=== PATIENT | male | born 1960 | race Caucasian/White ===

== ENCOUNTER 2017-09-13 08:30 | Inpatient (IN) ==
[2017-09-06 18:39] LABS: Appearance,Urine HAZY; Bacteria,Urine MOD /hpf (0); Bilirubin,Urine NEG (NEG); Color,Urine AMBER; Glucose,Urine (UA) NEGATIVE (NEG); Leukocyte Esterase,Urine 250 /uL (NEG); Mucus,Urine MOD /hpf (0); Nitrate,Urine POS (NEG); Protein,Urine NEG (NEG); Urine Blood NEG mg/dL (<0.03); Urine RBC 3 /hpf (0-1); Urine Squamous Epithelial Cell < 1 /hpf (0-4); Urine WBC 81 /hpf (0-4); Urobilinogen,Urine NEG (NEG)
[2017-09-06 19:52] LABS: Basophils # (Auto) 0 K/mcL (0.0-0.3); Basophils % (Auto) 0.3 % (0.0-2.0); Eosinophils # (Auto) 0.1 K/mcL (0.0-0.7); Eosinophils % (Auto) 1.6 % (0.0-7.0); Granulocytes % (Auto) 62.7 % (38.0-78.0); Lymphocytes # (Auto) 2.6 K/mcL (1.5-4.8); Lymphocytes % (Auto) 28.3 % (15.5-49.0); Mean Cell Volume 89.5 fL (80.0-100.0); Mean Corpuscular HGB Conc 33.5 g/dL (31.0-36.0); Monocytes # (Auto) 0.6 K/mcL (0.1-0.9); Monocytes % (Auto) 7.1 % (1.0-12.0); Platelet Count 261 K/mcL (140-440); Red Cell Distribution Width 13.4 % (11.5-14.5)
[2017-09-06 20:10] LABS: Blood Urea Nitrogen 13 mg/dl (6-20)
[~2017-09-13 08:30] MED LIST: CELECOXIB 200 MG CAPSULE PO SCH; PREGABALIN 75 MG CAPSULE PO SCH; ceFAZolin 1 GM VIAL IV SCH
[2017-09-13] MEDS ORDERED: oxyCODONE/APAP 10/325MG TABLET PO ONE (14:02)
[2017-09-13 16:17] LABS: Appearance,Urine CLEAR; Bilirubin,Urine NEG (NEG); Color,Urine YELLOW; Glucose,Urine (UA) NEGATIVE (NEG); Leukocyte Esterase,Urine NEG /uL (NEG); Nitrate,Urine NEG (NEG); Protein,Urine NEG (NEG); Specific Gravity,Urine 1.018 (1.000-1.035); Urine Blood NEG mg/dL (<0.03); Urobilinogen,Urine NEG (NEG)
[2017-09-13] MEDS ORDERED: DEXAMETHASONE 10 MG/ML VIAL IV ONE (18:45)
[2017-09-13] MEDS ORDERED: MIDAZOLAM 5 MG/5 ML VIAL IV ONE (18:45)
[2017-09-13] MEDS ORDERED: SUCCINYLCHOLINE 20 MG/ML ML IV ONE (18:45)
[2017-09-13] MEDS ORDERED: fentaNYL 100 MCG/2 ML VIAL IV ONE (18:45)
[2017-09-13] MEDS ORDERED: LIDOCAINE HCL/PF 100 MG/5 ML SYRINGE IV ONE (18:45)
[2017-09-13] MEDS ORDERED: ePHEDrine 50 MG/ML AMPUL IV ONE (18:45)
[2017-09-13] MEDS ORDERED: PHENYLEPHRINE 10 MG/ML VIAL IV ONE (18:45)
[2017-09-13] MEDS ORDERED: PROPOFOL 200 MG/20 ML VIAL IV ONE (18:45)
[2017-09-13] MEDS ORDERED: TRANEXAMIC ACID 1,000 MG/10 ML VIAL IV ONE ×2 (18:45→20:44)
[2017-09-13] MEDS ORDERED: ONDANSETRON 4 MG/2 ML VIAL IV ONE (18:45)
[2017-09-13] MEDS ORDERED: GENTAMICIN SULFATE 800 MG/20 ML VIAL IR ONE (20:01)
[2017-09-13] MEDS ORDERED: METOPROLOL TARTRATE 5 MG/5 ML VIAL IV PRN (20:28)
[2017-09-13] MEDS ORDERED: MEPERIDINE 25 MG/ML SYRINGE IV PRN (20:28)
[2017-09-13] MEDS ORDERED: METHOCARBAMOL 1,000 MG/10 ML VIAL IV PRN (20:28)
[2017-09-13] MEDS ORDERED: diphenhydrAMINE 50 MG/ML VIAL IV PRN (20:28)
[2017-09-13] MEDS ORDERED: ONDANSETRON 4 MG/2 ML VIAL IV PRN ×2 (20:28→20:44)
[2017-09-13] MEDS ORDERED: ePHEDrine 50 MG/ML AMPUL IV PRN (20:28)
[2017-09-13] MEDS ORDERED: FLUMAZENIL 0.1 MG/ML ML IV PRN (20:28)
[2017-09-13] MEDS ORDERED: NALOXONE HCL 0.4 MG/ML VIAL IV PRN (20:28)
[2017-09-13] MEDS ORDERED: PROMETHAZINE 25 MG/ML VIAL IV PRN ×2 (20:28→20:44)
[2017-09-13] MEDS ORDERED: IPRATROPIUM/ALBUTEROL 3 ML AMPUL.NEB NEB PRN (20:28)
[2017-09-13] MEDS ORDERED: ATROPINE SULFATE 0.4 MG/ML VIAL IV PRN (20:28)
[2017-09-13] MEDS ORDERED: ACETAMINOPHEN 1,000 MG/100 ML BOTTLE IV ONE (20:28)
[2017-09-13] MEDS ORDERED: BENZOCAINE/MENTHOL 1 LOZENGE PO PRN ×2 (20:28→20:44)
[2017-09-13] MEDS ORDERED: fentaNYL 100 MCG/2 ML VIAL IV PRN (20:28)
[2017-09-13] MEDS ORDERED: LACTATED RINGERS 1,000 ML IV SCH (20:30)
[2017-09-13] MEDS ORDERED: FLEETS ADULT ENEMA PR PRN (20:44)
[2017-09-13] MEDS ORDERED: KETOROLAC 30 MG/ML VIAL IV PRN (20:44)
[2017-09-13] MEDS ORDERED: POLYETHYLENE GLYCOL 3350 17 GM PACKET PO PRN (20:44)
[2017-09-13] MEDS ORDERED: HYDROmorphone 2 MG/ML SYRINGE IV PRN (20:44)
[2017-09-13] MEDS ORDERED: ONDANSETRON ODT 4 MG TABLET SL PRN (20:44)
[2017-09-13] MEDS ORDERED: MAGNESIUM HYDROXIDE 30 ML ORAL.SUSP PO PRN (20:44)
[2017-09-13] MEDS ORDERED: BISACODYL 10 MG SUPP.RECT PR PRN (20:44)
--- NOTE | 2017-09-13 20:44 | Brief Operative Note ---
Date of procedure: 09/13/17 Pre-op diagnosis: left hip oa Post-op diagnosis: same Procedure: left total hip arthroplasty Grafts/Implants: Yes Anesthesia: spinal Complications: none Surgeon: Fernando Acuña Medical Program Specialist: Soniya Mon Estimated blood loss (cc): 250 Specimens Removed/Pathology: none sent Condition: stable Disposition: PACU
[2017-09-13] MEDS ORDERED: SENNOSIDES 1 TABLET PO SCH (21:00)
[2017-09-13] MEDS: 0.9 % SODIUM CHLORIDE 1,000 ML IV SCH (22:41)
[2017-09-13] MEDS: DOCUSATE SODIUM 100 MG CAPSULE PO SCH (23:10)
[2017-09-13] MEDS: ceFAZolin 1 GM VIAL IV SCH (23:10)
[2017-09-13] MEDS: ASPIRIN 325 MG ENTERIC COATED TABLET PO SCH (23:11)
[2017-09-13] MEDS: oxyCODONE/APAP 10/325MG TABLET PO PRN (23:13)
[2017-09-13] MEDS: 0.9 % SODIUM CHLORIDE 10 ML SYRINGE IV SCH (23:14)
[2017-09-14] MEDS: METHOCARBAMOL 750 MG TABLET PO PRN ×2 (02:19→09:24)
[2017-09-14] MEDS: ceFAZolin 1 GM VIAL IV SCH (06:24)
[2017-09-14] MEDS: oxyCODONE/APAP 10/325MG TABLET PO PRN ×2 (06:24→10:36)
--- NOTE | 2017-09-14 06:30 | XRay Report ---
CLINICAL INFORMATION: Post-Op Total Hip COMPARISON: MRI of 05/20/2017 FINDINGS: Left total hip prostheses is in near-anatomic alignment. No osseous abnormality. Soft tissue swelling seen as expected IMPRESSION: Negative Interpreted and Authenticated by: Fernando Becker 09/14/17
--- NOTE | 2017-09-14 07:19 | Discharge Summary ---
Providers - Providers Patient information: Note initiated : 09/14/17 at 7:16 am Service Date, if different from initiated Date: [] Patient: Laureano Cavanaugh 56 y/o M admitted on 09/13/17 for Arthroplasty Hip, Total - LEft. Chief Complaint: [POD #1 s/p left TOSHIA Patient is doing well. Ambulating and urinating okay. Denies significant pain this morning. Denies numbness, tingling, calf pain, SOB or CP. Has no questions or concerns this morning.] Discharge date: 09/14/17 Hospitalization Hospital course: Patient was brought to the operating room 09/13/17 for a left TOSHIA. Operation was successful without event. Patient tolerated procedure well. He was admitted overnight for observation and pain control. He will be discharged home today without complication. He will follow up in office in 2 weeks. Discharge diagnosis: hip osteoarthritis Exam - Exam Incision healing: Yes Incision draining: No Incision red: No Incision swollen: No Incision inflamed: No Clean and dry: Yes Weight bearing status: as tolerated (with assistive device) Range of motion: full AROM b/l knees, ankles, feet, Rt hip. Lt hip appropriate PO ROM. Ortho Discharge - TOSHIA - Patient Instructions Diet: Regular Diet Activity: activity as tolerated, ambulate with assistive device, weight bearing as tolerated Total Hip Protocol: Follow activity instructions as provided by Physical Therapy. Dressing Care: May shower in 2 days, Aquacel Ag - leave on for 5 days - Follow Up Plan Follow Up Appointments: Fernando Acuña MD [Physician] - Disposition: Home, Self-Care Prognosis: Fair Rehab Potential: Fair Overall status at discharge: patient is progressing back to baseline - Orders For Discharge Prescriptions: Aspirin [Ecotrin] 325 mg PO BID #60 tab.ec oxyCODONE/APAP [Percocet 10-325Mg] 1 - 2 tab PO Q4-6HP PRN #60 tab PRN Reason: Pain Level 3-6 Additional Discharge Orders: Physical Therapy at Discharge - TOSHIA Location: Determined By Patient Walker Location: Determined By Patient Pending Studies Resuscitation Status Full Code Diet Regular Diet Start TueSep 13 2046 Aspirin (Ecotrin) 325 mg PO BID [facility] Last Admin: 09/13/17 23:11 Dose: 325 mg Docusate Sodium (Colace) 100 mg PO BID [facility] Last Admin: 09/13/17 23:10 Dose: 100 mg Sodium Chloride (Sodium Chloride 0.9%) 1,000 mls @ 125 mls/hr IV .Q8H MELLISA Last Admin: 09/13/17 22:41 Dose: 125 mls/hr Methocarbamol (Robaxin) 750 mg PO Q6HP PRN PRN Reason: Muscle Spasm Last Admin: 09/14/17 02:19 Dose: 750 mg Oxycodone/Acetaminophen (Percocet 10-325mg) 1 tab PO Q4-6HP PRN PRN Reason: PAIN LEVEL 3-6 Last Admin: 09/14/17 06:24 Dose: 1 tab Admin: 09/13/17 23:13 Dose: 1 tab Senna (Senokot) 2 tab PO HS [facility] Last Admin: 09/13/17 23:10 Dose: 2 tab Sodium Chloride (Saline Flush) 10 ml IV Q8 [facility] Last Admin: 09/13/17 23:14 Dose: Not Given Shift Summary 09/14/17 04:08 Shift Summary by Katie Mays Patient is alert and oriented X 4. He was back on the floor at 2215. He has been unable to urinate adequately most of the shift. He was bladder scanned for 469. 2 hours later He voided 150 and was bladder scanned for 680. He was straight cathed for 600. He was given pain medication X1 and a muscle relaxer. He was able to sit at the edge of his bed. He did attempt to stand with 2 person assit. IV left hand is patent. Initialized on 09/14/17 04:08 - END OF NOTE Exam Vital signs: Temp Pulse Resp BP Pulse Ox 97.8 F 76 12 99/63 93 09/14/17 04:00 09/14/17 07:12 09/14/17 07:12 09/14/17 04:00 09/14/17 07:12 Constitutional: well developed, well nourished, no acute distress Respiratory: no intercostal retractions or use of accessory muscles Cardiovascular: other (DP/PT pulses 2+ b/l. Cap refill < 3 sec) Skin: other (dressing CDI without drainage/erythema) Neurologic: sensation intact to touch, other (b/l LE NVI. Motor grossly intact) Psychiatric: oriented to person, place and time
--- NOTE | 2017-09-14 07:28 | Operative Note ---
DATE OF OPERATION: 09/13/2017 PREOPERATIVE DIAGNOSIS: Degenerative joint disease, left hip. POSTOPERATIVE DIGNOSIS: Degenerative joint disease, left hip. PROCEDURE: Left total hip arthroplasty. SURGEON: Marco Antonio Acuña M.D. WE[employer] P[employer]ER HEAD SURGEON: Soniya Mon PA-C ANESTHESIA: Spinal with LMA assist. ESTIMATED BLOOD LOSS: 250 mL COMPLICATIONS: None noted. SPECIMENS REMOVED: None. DRAINS: None. IMPLANTS: DePuy [place] Gription acetabular shell 58 mm, DePuy Rodney hole eliminator PS, DePuy [place] Altrex polyethylene acetabular liner lipped, 36 x 56, DePuy femoral Actis Duofix hip prosthesis, cementless size 5 standard collar, DePuy Biolox Delta ceramic femoral head +5 36 mm diameter. INDICATIONS: The patient has had a longstanding history of worsening pain in the hip that has failed conservative treatment. Radiographs have confirmed advanced degenerative joint disease. After a long discussion about treatment options, the patient elected to proceed with a hip arthroplasty. The risks and benefits were discussed with the patient in detail including, but not limited to, the risks of anesthesia, problems with the heart or lungs related to anesthesia, infection, compromise or injury to the nerves and blood vessels, deep venous thrombosis, pulmonary embolism, pneumonia, continued pain after surgery, worsening pain or symptoms after surgery, swelling, loss of motion, instability, leg length discrepancy, and need for repeat surgery. DESCRIPTION OF PROCEDURE: The patient was seen in pre-anesthesia waiting room where all questions were answered and the correct side and site were identified and marked. The patient was then brought to the operating room and administered the anesthetic and given pre-operative antibiotics. A time-out was then called. The patient was placed in the lateral decubitus position with all prominences well-padded using the [place] frame and the extremity was prepped and draped in the usual sterile fashion. Anesthesia gave the patient 1 gm of tranexamic acid via an intravenous route. A standard posterior approach was made. We dissected through the skin and subcutaneous tissue to the deep fascia. The deep fascia was split in line with the incision and a Charnley retractor was placed. We exposed, tagged, and incised the short external rotators and piriformis tendon and retracted them posteriorly to help protect the sciatic nerve which was palpated throughout the case. We then performed a T-capsulotomy and tagged the capsule edges. Prior to dislocating the hip, we set a length and offset gauge from a Steinmann pin in the iliac wing to a cali on the greater trochanter. The hip was then dislocated and a femoral neck osteotomy was performed to the pre-surgical templated level off the lesser trochanter. The head was removed and sized. We next turned our attention to the acetabulum. Retractors were placed for optimal visualization. A complete labral excision was performed. The capsule was preserved for later closure. We began reaming using anatomic landmarks with the DePuy [place] acetabular system. We medialized the cup and reamed up to provide good fill and coverage of the trial. When the trial was stable and appropriately positioned with approximately 20 degrees of anteversion and 45 degrees of abduction, we impacted the DePuy [place] cup and placed a cancellous screw in the posterior-superior quadrant. Osteophytes were removed from around the shell. We placed the trial liner and turned our attention to the femur. We placed retractors for visualization, internally rotated the femur, and established intramedullary access. We broached using the DePuy Actis stem to a stable platform medial, lateral, and rotationally with the appropriate version. We then performed a calcar reaming off the broach. Trials were then placed and optimized for leg length and stability. We used the leg length and offset guide to confirm our trials. Best stability, length, and offset characteristics were obtained with these sizes. We removed all trials and impacted the polyethylene acetabular liner in a standard fashion after a thorough irrigation. We then impacted the femoral stem to its broached location and placed the head. Final reduction was performed. Again, good stability, leg length, and offset characteristics were noted. We irrigated with three liters of antibiotic saline. We closed the capsule with #2 FiberWire. We closed the fascia with a combination of #2 Stratafix and #0 Vicryl. We closed the subcutaneous tissue and skin in layers out to duc in the skin. A sterile pressure dressing and abduction wedge was applied. All needle and sponge counts were correct. The patient was transferred to the recovery room in stable condition. TRINIDAD:[email or web address] Job ID: [id number] Doc ID: [id number] Marco Antonio Acuña MD
[2017-09-14] MEDS: 0.9 % SODIUM CHLORIDE 10 ML SYRINGE IV SCH (07:57)
[2017-09-14] MEDS: DOCUSATE SODIUM 100 MG CAPSULE PO SCH (08:41)
[2017-09-14] MEDS: 0.9 % SODIUM CHLORIDE 1,000 ML IV SCH (08:41)
[2017-09-14] MEDS: ASPIRIN 325 MG ENTERIC COATED TABLET PO SCH (08:41)
[2017-09-14] MEDS ORDERED: HYDROCHLOROTHIAZIDE 25 MG TABLET PO SCH (09:00)
[2017-09-14] MEDS ORDERED: LOSARTAN/HCTZ 100/25 TABLET PO SCH (09:00)
[2017-09-14] MEDS ORDERED: LOSARTAN 50 MG TABLET PO SCH (09:00)
== END 2017-09-14 11:35 | disposition home or self-care (01) | DRG 470 ==
LOC: MEDSUR 11:56
PROVIDERS: ADMIT Orthopaedic Surgery Sports Medicine; ATTEND Orthopaedic Surgery Sports Medicine